=== PATIENT | male | born 1955 ===

== ENCOUNTER 2016-11-25 10:53 | Emergency (ER) | payer BC ==
[2016-11-25] MEDS ORDERED: Sodium Chloride 0.9% 1,000 ML IV STA (11:39)
--- NOTE | 2016-11-25 11:39 | ED PDOC ---
Lower Extremity Pain/Injury Time Seen by Provider: 11/25/16 11:31 Chief Complaint (Nursing): Lower Extremity Problem/Injury Chief Complaint (Provider): ulcer to foot History Per: Patient, Clerk Analyst (Computer screen commercial sewing instructor at bedside ) Additional Complaint(s): 61-year-old male with history of diabetes presents to emergency department with open wound to left foot that he noticed several months ago. As of yesterday patient noticed bleeding from the wound and increased pain. Patient thinks he may have had fever at home yesterday but he did not measure temperature. He has mild localized pain to affected foot. Patient currently metformin and glipizide daily for diabetes and he states he is compliant with these meds. Patient doesn' t typically check his glucose levels at home. Past Medical History Reviewed: Historical Data, Nursing Documentation, Vital Signs Vital Signs: Last Vital Signs Temp 99.1 F 11/25/16 11:04 Pulse 100 H 11/25/16 11:04 Resp 20 11/25/16 11:04 BP 165/71 H 11/25/16 11:04 Pulse Ox 100 11/25/16 11:04 - Medical History PMH: Diabetes - Surgical History Surgical History: No Surg Hx - Family History Family History: States: No Known Family Hx - Living Arrangements Living Arrangements: With Family - Social History Current smoker - smoking cessation education provided: No Alcohol: None Drugs: Denies - Home Medications Home Medications: Ambulatory Orders Medication Instructions Recorded GlipiZIDE [Glipizide] 10 mg PO BID 11/25/16 MetFORMIN [glucOPHAGE] 1,000 mg PO BID 11/25/16 - Allergies Allergies/Adverse Reactions: Allergies Allergy/AdvReac Type Severity Reaction Status Date / Time No Known Allergies Allergy Verified 11/25/16 11:39 Wells Criteria for PE - Wells Criteria for Pulmonary Embolism Clinical Signs and Symptoms of DVT: No P.E is #1 Diagnosis, or Equally Likely: No Heart Rate >100: No Immobilization at least 3 days;Surgery previous 4 weeks: No Previous, objectively diagnosed PE or DVT: No Hemoptysis: No Malignancy w/treatment within 6 months, or palliative: No Total Score: 0 Review of Systems ROS Statement: Except As Marked, All Systems Reviewed And Found Negative Constitutional: Positive for: Fever (subjective fever yesterday at home), Chills Cardiovascular: Negative for: Chest Pain Respiratory: Negative for: Cough Gastrointestinal: Negative for: Nausea, Vomiting Musculoskeletal: Positive for: Foot Pain (open wound left foot) Physical Exam - Reviewed Nursing Documentation Reviewed: Yes Vital Signs Reviewed: Yes - Physical Exam Appears: Positive for: Well, Non-toxic, No Acute Distress Skin: Negative for: Rash Eye Exam: Positive for: Normal appearance, EOMI, PERRL Cardiovascular/Chest: Positive for: Regular Rate, Rhythm Respiratory: Positive for: Normal Breath Sounds Extremity: Positive for: Other (Superficial ulcer noted to calcaneal region of left foot, mild tenderness to palpation, minimal erythema, no active drainage or bleeding) Neurologic/Psych: Positive for: Alert, Oriented - Laboratory Results Result Diagrams: 11/25/16 11:30 11/25/16 11:30 Urine dip results: Negative for: Leukocyte Esterase, Blood, Nitrate, Ketones, Glucose, Bilirubin, Protein - ECG O2 Sat by Pulse Oximetry: 100 Pulse Ox Interpretation: Normal - Other Rad CXR X-Ray: Interpreted by Me, Viewed By Me X-Ray Interpretation: no acute finding Left foot X-ray X-Ray: Interpreted by Me, Viewed By Me X-Ray Interpretation: superficial ulcer to heal, no gas, no fx, no dis Medical Decision Making Medical Decision Makin-year-old male with wound to left foot for several months Accu-Chek upon arrival [id number] Plan: CBC CMP CXR Left foot x-ray IVF IV insulin PO tylenol for pain 2:20 pm: repeat fingerstick: 155 Case was d/w podiatry resident who will come to see the patient. Resident Dr. Miller performed bedside debridement of wound, then dressed wound with with bacitracin and gauze wrap. Patient was referred to clinic for follow-up. He was instructed to call podiatry clinic today to arrange for appt time for this coming Thursday or Thursday. Patient was also instructed to continue with Tylenol for pain and follow up this week in clinic as directed. Disposition - Clinical Impression Clinical Impression: Foot ulcer, left, Hyperglycemia - Patient ED Disposition Is Patient to be Admitted: No Counseled Patient/Family Regarding: Studies Performed, Diagnosis, Need For Followup - Disposition Referrals: Podiatry Clinic [Outside] Disposition: Routine/Home Disposition Time: 15:11 Condition: STABLE Additional Instructions: Keep wound clean and dry. Tylenol for pain as needed. Call podiatry clinic and arrange for follow up visit for this coming Thursday or Thursday. Return to ED at any time if acutely worse. Instructions: Diabetic Foot Care (ED), Diabetic Foot Ulcers (ED), Diabetic Hyperglycemia (ED) Forms: [facility] ED School/Work Excuse Print Language: AMERICAN Results - Lab Results Lab Results: 11/25/16 11:30 WBC 9.4 RBC 3.96 L Hgb 12.6 Hct 36.3 MCV 91.6 MCH 31.7 H MCHC 34.6 RDW 12.4 Plt Count 224 MPV 10.2 Neut % (Auto) 85.6 H Lymph % (Auto) 8.5 L Long % (Auto) 5.2 Eos % (Auto) 0.4 Baso % (Auto) 0.3 Neut # 8.1 H Lymph # 0.8 L Long # 0.5 Eos # 0.0 Baso # 0.0 Neutrophils % (Manual) 84 H Band Neutrophils % 1 Lymphocytes % (Manual) 8 L Reactive Lymphs % 2 H Monocytes % (Manual) 5 Platelet Estimate Normal RBC Morphology Normal Sodium 134 Potassium 4.5 Chloride 95 L Carbon Dioxide 26 Anion Gap 18 BUN 25 H Creatinine 1.2 Est GFR ( Amer) > 60 Est GFR (Non-Af Amer) > 60 Random Glucose 477 H* Calcium 9.1 Total Bilirubin 0.6 AST 19 ALT 26 Alkaline Phosphatase 96 Total Protein 7.3 Albumin 3.8 Globulin 3.6 Albumin/Globulin Ratio 1.1
[2016-11-25 12:02] LABS: BASO % 0.3 % (0.0-2.0); EOS % 0.4 % (0.0-4.0); HEMATOCRIT 36.3 % (35.0-51.0); LYMPH # 0.8 K/uL (1.0-4.3); LYMPH % 8.5 % (20.0-40.0); MEAN CELL VOLUME 91.6 fl (80.0-94.0); MEAN CORPUSCULAR HEMOGLOBIN 31.7 pg (27.0-31.0); MEAN CORPUSCULAR HGB CONC 34.6 g/dL (33.0-37.0); MEAN PLATELET VOLUME 10.2 fl (7.2-11.7); MONO # 0.5 K/uL (0.0-0.8); MONO % 5.2 % (0.0-10.0); NEUT # 8.1 K/uL (1.8-7.0); NEUT % 85.6 % (50.0-75.0); PLATELET COUNT 224 K/uL (130-400); RED CELL DISTRIBUTION WIDTH 12.4 % (11.5-14.5); WHITE BLOOD COUNT 9.4 K/uL (4.8-10.8)
[2016-11-25 12:11] LABS: ALB/GLOB RATIO 1.1 (1.0-2.1); ALKALINE PHOSPHATASE 96 U/L (38-126); ALT/SGPT 26 U/L (21-72); AST/SGOT 19 U/L (17-59); BILIRUBIN,TOTAL 0.6 mg/dl (0.2-1.3); BLOOD UREA NITROGEN 25 mg/dl (9-20); CALCIUM 9.1 mg/dL (8.4-10.2); CARBON DIOXIDE 26 mmol/L (22-30); CHLORIDE 95 mmol/L (98-107); GFR AFRICAN-AMERICAN > 60; POTASSIUM 4.5 MMOL/L (3.6-5.0); SODIUM 134 mmol/l (132-148); TOTAL PROTEIN 7.3 G/DL (6.3-8.2)
[2016-11-25] MEDS ORDERED: Insulin Regular 100 units/ml IV STA (12:13)
[2016-11-25 12:16] LABS: GLUCOSE,RANDOM 477 mg/dL (75-110)
[2016-11-25 14:01] LABS: NEUTROPHIL 84 % (42-75); REACTIVE LYMPHOCYTES 2 % (0-0); TOTAL CELLS COUNTED 100
--- NOTE | 2016-11-25 14:21 | RAD ---
HISTORY: clearance COMPARISON: No prior. TECHNIQUE: Chest PA and lateral FINDINGS: LUNGS: The lungs are well inflated and clear. PLEURA: No significant pleural effusion identified. No pneumothorax apparent. CARDIOVASCULAR: Normal. OSSEOUS STRUCTURES: No significant abnormalities. VISUALIZED UPPER ABDOMEN: Normal. OTHER FINDINGS: None. IMPRESSION: No active pulmonary disease.
--- NOTE | 2016-11-25 14:27 | RAD ---
PROCEDURE: Left Foot Radiographs. HISTORY: ulcer on heel COMPARISON: None. FINDINGS: BONES: No acute fracture or bone destruction. Bone alignment and mineralization are normal. There is a small dorsal calcaneal enthesophyte. JOINTS: Normal. SOFT TISSUES: There is diffuse soft tissue swelling in the plantar foot and soft tissue defect. OTHER FINDINGS: None. IMPRESSION: Plantar soft tissue swelling and ulceration. No radiographic evidence of osteomyelitis.
--- NOTE | 2016-11-25 14:42 | CP.PCM.CON ---
History of Present Illness - History of Present Illness History of Present Illness: 61 year old male with PMHx of DM presents to the ED with complaint of open wound the bottom of the left foot. He states that the wound has been present for over 2 months. He states that he has noticed bleeding from the foot. He admits to pain on the bottom of the foot. He has not followed up with anyone for this wound. He admits to some chills, but denies n/v/f/sob/cp. Labor Relations Officer Niurka Ramos [id number] Past Patient History - Past Social History Alcohol: None Drugs: Denies - ENDOCRINE/METABOLIC Hx Diabetes Mellitus Type 2: Yes - PSYCHIATRIC Hx Substance Use: No - ANESTHESIA Hx Anesthesia: No Meds Allergies/Adverse Reactions: Allergies Allergy/AdvReac Type Severity Reaction Status Date / Time No Known Allergies Allergy Verified 11/25/16 11:39 Physical Exam - Constitutional Appears: Well, Non-toxic, No Acute Distress - Extremities Exam Additional comments: Vasc:DP and PT pulses palpable 2/4 b/l. Skin temperature warm to cool from proximal to distal. CFT < 3 seconds to all digits b/l Neuro: Gross sensation diminished Ortho: Mild pain on palpation to left foot ulcer Derm:Open ulceration measuring approximelty 0.5 cm by 0.5 cm by 0.4 cm noted to the plantar aspect of the left foot, base is fibrotic, periwound is hyperkeratotic. No drainage, no purulence, no erythema, no malodor, no probe to bone noted. - Neurological Exam Neurological exam: Alert, Oriented x3 - Psychiatric Exam Psychiatric exam: Normal Affect, Normal Mood Results - Vital Signs Recent Vital Signs: Last Vital Signs Temp 99.1 F 11/25/16 11:04 Pulse 100 H 11/25/16 11:04 Resp 20 11/25/16 11:04 BP 165/71 H 11/25/16 11:04 Pulse Ox 100 11/25/16 14:22 - Labs Result Diagrams: 11/25/16 11:30 11/25/16 11:30 Labs: Laboratory Results - last 24 hr 11/25/16 11:30 WBC 9.4 RBC 3.96 L Hgb 12.6 Hct 36.3 MCV 91.6 MCH 31.7 H MCHC 34.6 RDW 12.4 Plt Count 224 MPV 10.2 Neut % (Auto) 85.6 H Lymph % (Auto) 8.5 L [place] % (Auto) 5.2 Eos % (Auto) 0.4 Baso % (Auto) 0.3 Neut # 8.1 H Lymph # 0.8 L [place] # 0.5 Eos # 0.0 Baso # 0.0 Neutrophils % (Manual) 84 H Band Neutrophils % 1 Lymphocytes % (Manual) 8 L Reactive Lymphs % 2 H Monocytes % (Manual) 5 Platelet Estimate Normal RBC Morphology Normal Sodium 134 Potassium 4.5 Chloride 95 L Carbon Dioxide 26 Anion Gap 18 BUN 25 H Creatinine 1.2 Est GFR ( Amer) > 60 Est GFR (Non-Af Amer) > 60 Random Glucose 477 H* Calcium 9.1 Total Bilirubin 0.6 AST 19 ALT 26 Alkaline Phosphatase 96 Total Protein 7.3 Albumin 3.8 Globulin 3.6 Albumin/Globulin Ratio 1.1 Assessment & Plan - Assessment and Plan (Free Text) Assessment: 61 year old male with left foot plantar heel ulcer secondary to DM Plan: Patient examined and evaluated Chart, lab, vitals reviewed; afebrile, WBC 9.4 Radiographs reviewed-superficial ulceration noted to left heel with soft tissue swelling, no radiographs evidence of OM Discussed in detail with attending Dr. Virk Verbal consent was obtained, and using a #15 blade, I excisionally debrided the hyperkeratotic skin around the edges of the left plantar heel ulcer. The ulcer then measured 0.7 x 0.7 x 0.4 cm. Ulcer dressed with bacitracin, DSD Patient to change dressing with bacitrain and DSD daily Patient to return to ED if symptoms worsen Patient to follow up in Clinic on Thursday, patient given phone number to clinic and instructed to make appointment today
[2016-11-25 15:39] VITALS: BP 132/68; PULSE 82; RESP 18; TEMP 98.6
[2016-11-25 16:04] VITALS: O2SAT 100
== END 2016-11-25 15:39 | disposition home or self-care (01) ==
LOC: H.ER 10:53
DX: L97.529 Non-pressure chronic ulcer of other part of left foot with unspecified severity (principal); E11.65 Type 2 diabetes mellitus with hyperglycemia
CPT/HCPCS: 71020; 73630; 80053; 82948; 85025; 87040; 87070; 87181; 96360; 99284; J7040